=== PATIENT | female | born 1955 | race Two or more races ===

== ENCOUNTER 2017-12-02 13:13 | Outpatient (CLI) | payer OTHER | END 2017-12-02 13:22 | disposition home or self-care (01) | LOC: MAMO-SONO 13:13 | DX: Z12.31 Encounter for screening mammogram for malignant neoplasm of breast (principal) ==

== ENCOUNTER 2017-12-09 12:33 | Outpatient (CLI) | payer OTHER | END 2017-12-09 13:00 | disposition home or self-care (01) | LOC: RAD 501 12:33 | DX: M20.41 Other hammer toe(s) (acquired), right foot (principal); M20.42 Other hammer toe(s) (acquired), left foot ==

== ENCOUNTER 2018-10-10 17:04 | Emergency (ER) | payer OTHER ==
[~2018-10-10] VITALS: Ht 157.5 cm; Wt 63.0 kg
== END 2018-10-10 18:10 | disposition home or self-care (01) ==
LOC: ER 17:04
DX: S90.872A Other superficial bite of left foot, initial encounter (principal); W54.0XXA Bitten by dog, initial encounter; Y93.89 Activity, other specified; Y92.89 Other specified places as the place of occurrence of the external cause; Y99.8 Other external cause status

== ENCOUNTER 2019-03-17 11:24 | Outpatient (CLI) | payer OTHER | END 2019-03-17 11:39 | disposition home or self-care (01) | LOC: NUCLEAR 11:24 | DX: M81.0 Age-related osteoporosis without current pathological fracture (principal) ==

== ENCOUNTER 2019-04-14 11:58 | Outpatient (CLI) | payer OTHER | END 2019-04-14 12:05 | disposition home or self-care (01) | LOC: SONOGRAMA 11:58 | DX: D35.00 Benign neoplasm of unspecified adrenal gland (principal); E04.2 Nontoxic multinodular goiter ==

== ENCOUNTER 2019-05-04 07:51 | Outpatient (CLI) | payer OTHER | END 2019-05-04 07:52 | disposition home or self-care (01) | LOC: NUCLEAR 07:51 | DX: E21.3 Hyperparathyroidism, unspecified (principal); M81.0 Age-related osteoporosis without current pathological fracture | CPT/HCPCS: 78072; A9500 ==

== ENCOUNTER 2021-03-20 13:12 | Outpatient (CLI) | payer OTHER | END 2021-03-20 13:16 | disposition home or self-care (01) | LOC: NUCLEAR 13:12 | PROVIDERS: ATTEND Internal Medicine Endocrinology, Diabetes & Metabolism | DX: M81.0 Age-related osteoporosis without current pathological fracture (principal); E04.9 Nontoxic goiter, unspecified; E78.00 Pure hypercholesterolemia, unspecified ==

== ENCOUNTER 2022-04-25 11:00 | Outpatient (CLI) | payer OTHER | END 2022-04-25 11:10 | disposition home or self-care (01) | LOC: MAMO-SONO 11:00 | PROVIDERS: ATTEND Obstetrics & Gynecology | DX: Z12.31 Encounter for screening mammogram for malignant neoplasm of breast (principal); N60.11 Diffuse cystic mastopathy of right breast ==

== ENCOUNTER 2025-02-02 11:29 | Outpatient (CLI) | payer OTHER | END 2025-02-02 11:32 | disposition home or self-care (01) | LOC: SONOGRAMA 11:29 | PROVIDERS: ATTEND Internal Medicine Endocrinology, Diabetes & Metabolism | DX: N18.2 Chronic kidney disease, stage 2 (mild) (principal); I11.0 Hypertensive heart disease with heart failure; E78.2 Mixed hyperlipidemia; E04.9 Nontoxic goiter, unspecified ==